=== PATIENT | female | born 1985 | race Caucasian/White ===

== ENCOUNTER 2021-03-13 23:16 | Inpatient (IN) | payer BC, MEDICAID ==
[~2021-03-13] VITALS: Ht 170.2 cm; Wt 77.2 kg
[2021-03-14] VITALS (18 sets, daily range): BP systolic 108–137; BP diastolic 64–99
[2021-03-14 00:27] LABS: BASOPHILS % (AUTO) 0.1 % (0-1); EOSINOPHILS % (AUTO) 0 % (0-6); HEMATOCRIT 42.6 % (35.0-45.0); HEMOGLOBIN 14.3 g/dl (12.0-16.0); LYMPHOCYTES # (AUTO) 1.5 X10'3 (1.1-4.8); LYMPHOCYTES % (AUTO) 8.6 % (21-51); MEAN CORPUSCULAR HEMOGLOBIN 30.3 PG (27.0-31.0); MEAN CORPUSCULAR HGB CONC 33.6 g/dL (33.0-36.5); MEAN CORPUSCULAR VOLUME 90.2 FL (78-98); MONOCYTES # (AUTO) 0.7 X10'3 (0-0.9); MONOCYTES % (AUTO) 3.8 % (2-12); NEUTROPHILS % (AUTO) 87.5 % (42-75); PLATELET COUNT 372 X10'3 (140-440); RED BLOOD COUNT 4.72 X10'6 (4.20-5.60); RED CELL DISTRIBUTION WIDTH 14.3 % (11.5-14.5); WHITE BLOOD COUNT 17.1 X10'3 (4.5-11.0)
[2021-03-14 00:38] LABS: ALKALINE PHOSPHATASE 110 IU/L (46-116); CHLORIDE 102 MMOL/L (99-107)
[2021-03-14 00:44] LABS: URINE HCG NEGATIVE (NEG)
[2021-03-14 00:49] LABS: CLARITY,URINE CLEAR (Clear); COLOR,URINE YELLOW (Yellow); GLUCOSE, URINE NEGATIVE (Neg); KETONES,URINE NEGATIVE (Neg); LEUKOCYTE ESTERASE ,URINE NEGATIVE (Neg); NITRITES, URINE NEGATIVE (Neg); OCCULT BLOOD,URINE TRACE-LYSED (Neg); PROTEIN,URINE NEGATIVE (Neg)
[2021-03-14 00:54] LABS: UA COLLECTION TYPE CLN CATCH MIDSTREAM
[2021-03-14 01:06] LABS: ALANINE AMINOTRANSFERASE 18 U/L (12-78); ALBUMIN 4.1 G/DL (3.4-5.0); ANION GAP 14 (8-16); ASPARTATE AMINO TRANSFERASE 22 U/L (10-37); BLOOD UREA NITROGEN 10 MG/DL (7-18); BUN/CREATININE RATIO 11.5 (6.6-38.0); CREATININE 0.87 MG/DL (0.40-0.90); GLUCOSE 132 MG/DL (70-104); LIPASE < 50 U/L (73-393); POTASSIUM 3.9 MMOL/L (3.5-5.1); SODIUM 138 MMOL/L (135-145); TOTAL CARBON DIOXIDE 21.8 MMOL/L (24-32); TOTAL PROTEIN 8.1 G/DL (6.4-8.2); eGFR 74 ML/MIN
[2021-03-14 01:12] LABS: BACTERIA,URINE FEW /HPF (Neg); RBC,URINE 0-2 /HPF (0-2); SQUAMOUS EPITHELIAL CELL,UR FEW /LPF (FEW); WBC,URINE 0-4 /HPF (0-4)
[2021-03-14] MEDS ORDERED: ondansetron/PF 4mg/2ml inj IV ONE (01:30)
[2021-03-14] MEDS: morphine 4 MG/ML inj SYRINge IV PRN ×2 (01:38→02:20)
[2021-03-14] MEDS ORDERED: normal saline 1000ml 1,000 ML IV ONE (01:45)
[2021-03-14] MEDS ORDERED: piperacillin/tazo 3.375gm/50ml 50 ML IV ONE (02:00)
[2021-03-14] MEDS ORDERED: fentaNYL/PF 50MCG/1 ML 2ML syringe IV ONE (02:30)
[2021-03-14] MEDS ORDERED: LORA-269 PO (02:48)
[2021-03-14] MEDS ORDERED: ZOLP10TA PO (02:48)
[2021-03-14] MEDS ORDERED: SYN0.088T PO (02:48)
[2021-03-14] MEDS ORDERED: haloperidol lactate 5mg/ml inj IM ONE (03:10)
[2021-03-14] MEDS ORDERED: HYDROmorphone inj. 0.5 MG/0.5 ML DISP.SYRIN IV ONE (03:40)
[2021-03-14] MEDS ORDERED: ondansetron/PF 4mg/2ml inj IV PRN ×2 (04:30→07:15)
[2021-03-14] MEDS ORDERED: morphine 2 MG/ML inj. syringe IV PRN ×3 (04:30→07:15)
[2021-03-14] MEDS ORDERED: zolpidem 5mg tablet PO PRN (04:40)
[2021-03-14] MEDS: normal saline 1000ml 1,000 ML IV SCH ×3 (04:45→23:48)
[2021-03-14] MEDS ORDERED: BUPIVAcaine/PF 2.5 mg/ml (0.25%) 30ml vial ONE (07:04)
[2021-03-14] MEDS ORDERED: LIDOcaine 1% 30ml preserv. free vial ONE (07:04)
[2021-03-14] MEDS ORDERED: scopolamine 1.5mg patch.TD72 TD ONE (07:13)
[2021-03-14] MEDS ORDERED: famotidine/PF 10 mg/ml inj IV ONE (07:13)
[2021-03-14] MEDS ORDERED: labetalol 20mg/4ml (5mg/ml) syringe IV PRN (07:15)
[2021-03-14] MEDS ORDERED: ketorolac trometh. 30mg/ml inj. IV ONE (07:15)
[2021-03-14] MEDS ORDERED: hydrALAZINE 20mg/ml inj. IV PRN (07:15)
[2021-03-14] MEDS ORDERED: meperidine/PF 25mg/ml syringe IV PRN ×3 (07:15)
[2021-03-14] MEDS ORDERED: acetaminophen 1,000mg/100ml IV 100 ML IV PRN (07:15)
[2021-03-14] MEDS ORDERED: ringers solution, lacted 1,000 ML IV SCH (07:15)
[2021-03-14] MEDS ORDERED: morphine 4 MG/ML inj SYRINge IV PRN (07:15)
[2021-03-14] MEDS ORDERED: proCHLORperazine 10 MG/2 ml inj IV PRN (07:15)
[2021-03-14] MEDS ORDERED: sevoflurane 250ml liquid IH ONE (07:18)
[2021-03-14] MEDS ORDERED: midazolam 1 mg/ML 2ml injection ONE (07:21)
[2021-03-14] MEDS ORDERED: fentaNYL /PF 50mcg/ml 5ml ampule ONE (07:22)
[2021-03-14] MEDS ORDERED: HYDROmorphone/PF 0.2 MG/ML SYRINGE IV PRN ×2 (07:25)
[2021-03-14] MEDS ORDERED: LIDOcaine 2% 5ml jelly ONE (07:26)
[2021-03-14] MEDS ORDERED: ceFOXitin 1000 MG inj ONE ×2 (07:41)
[2021-03-14] MEDS ORDERED: rocuronium 10mg/ml inj IV ONE (07:41)
[2021-03-14] MEDS ORDERED: propofol inj 20 ML IV ONE (07:41)
[2021-03-14] MEDS ORDERED: LIDOcaine 2% (20mg/ml) 5ml vial ONE (07:41)
[2021-03-14] MEDS ORDERED: dexamethasone sod phosphate 4mg/ml inj. ONE (07:42)
[2021-03-14] MEDS ORDERED: ondansetron/PF 4mg/2ml inj ONE (07:42)
[2021-03-14] MEDS ORDERED: 0.9 % SODIUM CHLORIDE 10 ML VIAL ONE (07:54)
[2021-03-14] MEDS ORDERED: ePHEDrine 50MG/ML INJ. ONE (07:54)
[2021-03-14] MEDS ORDERED: neostigmine methylsulfate 1 MG/ML 10ml vial ONE (08:05)
[2021-03-14] MEDS ORDERED: glycopyrrolate 0.2mg/ml inj ONE (08:05)
[2021-03-14] MEDS ORDERED: HYDROcodone/acetaminophen 5mg/325mg tablet PO PRN (08:15)
--- NOTE | 2021-03-14 08:26 | NUR ---
Received from OR via [facility], accompanied by Anesthesiologist Shakeel and report given by Anesthesiolgist. VS WNL, patient sleepy but somewhat responsive, denies pain. Lap sites with dermabond only, CDI otherwise. 20G right AC with IVF LR at 100cc/hr. Pt will need to be transferred to bed, will coordinate with frame sample and pattern supervisor prior to transer. SCDs will be placed when transferred to bed. No talamantes, patient voided prior to surgery.
[2021-03-14] MEDS ORDERED: magnesium 4gm in 100ml NS 100 ML IV PRN (09:30)
[2021-03-14] MEDS ORDERED: magnesium Cl slow-release 64mg tablet PO PRN (09:30)
[2021-03-14] MEDS ORDERED: potassium Cl 20 mEq SR tablet PO PRN ×2 (09:30)
[2021-03-14] MEDS ORDERED: potassium Cl 40MEQ/1/2NS 520ml 520 ML IV PRN (09:30)
--- NOTE | 2021-03-14 09:36 | NUR ---
Report called to receiving nurse. Transferred via gurney into room and onto surgical bed, 340B. Belongings sent with patient, glasses on face, one large white clear bag, one medium sized handbag, one hospital belongings bag. Special Issues communicated to receiving nurse Ava BLANTON who is at bedside to receive patient. BLL call light within reach, chart at bedside.
[2021-03-14] MEDS: piperacillin/tazo 3.375gm/50ml 50 ML IV SCH ×3 (11:08→23:47)
[2021-03-14] MEDS: levoTHYROXINE 88mcg tablet PO SCH (11:11)
--- NOTE | 2021-03-14 12:36 | NUR ---
Pt. has a small clear jeweled bracelet on her. Offered to have admitting come put bracelet in safe but pt. refused stating she would just put it back on. Pt. put bracelet on and is wearing it.
[2021-03-14 12:40] LABS: ALANINE AMINOTRANSFERASE 500 U/L (12-78); ALBUMIN 3.5 G/DL (3.4-5.0); ALBUMIN/GLOBULIN RATIO 1.2 (1.1-1.5); ALKALINE PHOSPHATASE 180 IU/L (46-116); ANION GAP 10 (8-16); ASPARTATE AMINO TRANSFERASE 678 U/L (10-37); BILIRUBIN,TOTAL 2.4 MG/DL (0.1-1.0); BLOOD UREA NITROGEN 9 MG/DL (7-18); BUN/CREATININE RATIO 11.7 (6.6-38.0); CALCIUM 7.9 MG/DL (8.5-10.1); CHLORIDE 105 MMOL/L (99-107); CREATININE 0.77 MG/DL (0.40-0.90); GLUCOSE 111 MG/DL (70-104); POTASSIUM 3.9 MMOL/L (3.5-5.1); SODIUM 141 MMOL/L (135-145); TOTAL CARBON DIOXIDE 25.9 MMOL/L (24-32); TOTAL PROTEIN 6.4 G/DL (6.4-8.2); eGFR 85 ML/MIN
[2021-03-14] MEDS: HYDROcodone/acetaminophen 10/325mg tab PO PRN ×2 (15:52→20:12)
[2021-03-14] MEDS: K and/or MAG REPLACEMENT MC SCH (20:00)
[2021-03-14] MEDS: lactobacillus rhamnosus 10,000 MMU CELLS/CAPSULE PO SCH (20:11)
[2021-03-14] MEDS ORDERED: LORazepam 1 MG tablet PO SCH (21:00)
--- NOTE | 2021-03-15 00:58 | NUR ---
Student documentation: I have reviewed all interventions, assessments performed and documented by Elina Ewing. Student Medication Administration: For this medication-pass time frame, all medication were reviewed, dispensed, administered and documented per hospital policy by Elina Heaton [place].
[2021-03-15 05:55] LABS: HEMOGLOBIN 10.9 g/dl (12.0-16.0)
[2021-03-15 05:58] LABS: BASOPHILS % (AUTO) 0.2 % (0-1); EOSINOPHILS % (AUTO) 0.2 % (0-6); HEMATOCRIT 32.3 % (35.0-45.0); LYMPHOCYTES # (AUTO) 2.2 X10'3 (1.1-4.8); LYMPHOCYTES % (AUTO) 25.7 % (21-51); MEAN CORPUSCULAR HEMOGLOBIN 31.1 PG (27.0-31.0); MEAN CORPUSCULAR HGB CONC 33.6 g/dL (33.0-36.5); MEAN CORPUSCULAR VOLUME 92.4 FL (78-98); MEAN PLATELET VOLUME 8.1 FL (7.4-10.4); MONOCYTES # (AUTO) 0.4 X10'3 (0-0.9); NEUTROPHILS # (AUTO) 5.9 X10'3 (1.8-7.7); NEUTROPHILS % (AUTO) 68.9 % (42-75); PLATELET COUNT 235 X10'3 (140-440); RED CELL DISTRIBUTION WIDTH 14.6 % (11.5-14.5); WHITE BLOOD COUNT 8.6 X10'3 (4.5-11.0)
[2021-03-15 06:20] LABS: ALANINE AMINOTRANSFERASE 294 U/L (12-78); ALBUMIN 2.7 G/DL (3.4-5.0); ALKALINE PHOSPHATASE 133 IU/L (46-116); ANION GAP 7 (8-16); ASPARTATE AMINO TRANSFERASE 167 U/L (10-37); BILIRUBIN,TOTAL 0.9 MG/DL (0.1-1.0); BLOOD UREA NITROGEN 8 MG/DL (7-18); BUN/CREATININE RATIO 11.6 (6.6-38.0); CALCIUM 7.9 MG/DL (8.5-10.1); CHLORIDE 108 MMOL/L (99-107); CREATININE 0.69 MG/DL (0.40-0.90); GLUCOSE 97 MG/DL (70-104); MAGNESIUM 2.1 MG/DL (1.5-2.4); POTASSIUM 3.8 MMOL/L (3.5-5.1); SODIUM 142 MMOL/L (135-145); TOTAL CARBON DIOXIDE 26.6 MMOL/L (24-32); TOTAL PROTEIN 5.3 G/DL (6.4-8.2); eGFR > 90 ML/MIN
--- NOTE | 2021-03-15 06:37 | NUR ---
Patient in room [facility]. I have received report from Rich BLANTON and had the opportunity to ask questions and assume patient care.
[2021-03-15] MEDS: HYDROcodone/acetaminophen 10/325mg tab PO PRN ×2 (06:44→12:45)
--- NOTE | 2021-03-15 06:58 | NUR ---
Problems reprioritized. Patient report given, questions answered & plan of care reviewed with SHRUTHI. Addendum: 03/15/21 at 0658 by Milo Ford RN Amended: Links added.
[2021-03-15 07:00] VITALS: BP_SYST 123; BP_SYST 91; BP_DIAS 48; BP_DIAS 61
[2021-03-15] MEDS: K and/or MAG REPLACEMENT MC SCH (08:00)
--- NOTE | 2021-03-15 08:28 | NUR ---
Paged Dr. To PAGER ID: [phone] MESSAGE: Surgical Sarika BLANTON ext [phone]. RE: Estrella Medellin. Just FYI. Dr. Paulino said that patient can go home today from his standpoint.
[2021-03-15] MEDS: levoTHYROXINE 88mcg tablet PO SCH (08:46)
[2021-03-15] MEDS: lactobacillus rhamnosus 10,000 MMU CELLS/CAPSULE PO SCH (08:46)
[2021-03-15] MEDS ORDERED: HYDR-3972 PO (09:51)
[2021-03-15 11:00] VITALS: BP 104/63
--- NOTE | 2021-03-15 14:14 | NUR ---
Discharge instructions given to patient, patient verbalized understanding of all instructions made. Patient stated that her ride will be here between 5-6pm as her boyfriend is at work. Original written prescription for Chugwater given to patient, placed it inside her discharge folder. Signs and symptoms of infection to watch for was discussed with patient. Instructed patient to ensure she has all her belongings with her before leaving the hospital. Provided education to patient about Chugwater including possible drug-drug interaction between Chugwater, ativan, and restoril that is on her list of home medication.
--- NOTE | 2021-03-16 12:58 | NUR ---
CASE MANAGEMENT DISCHARGE FOLLOW UP: T/c to pt, no answer, left message requesting callback.
== END 2021-03-15 18:10 | disposition home or self-care (01) | DRG 343 ==
LOC: ER 23:17 → ED HOLD 03-14 04:26 → SUR 3N 03-14 10:16
PROVIDERS: ADMIT Internal Medicine; ATTEND Internal Medicine
PROC: 0DTJ4ZZ Resection of Appendix, Percutaneous Endoscopic Approach (ICD-10-PCS; principal; 2021-03-14 07:18)
DX: K35.80 Unspecified acute appendicitis (principal); E03.9 Hypothyroidism, unspecified; F12.90 Cannabis use, unspecified, uncomplicated; Z20.822 Contact with and (suspected) exposure to COVID-19; F41.9 Anxiety disorder, unspecified; R74.01 Elevation of levels of liver transaminase levels; Z79.899 Other long term (current) drug therapy; Z79.890 Hormone replacement therapy; Z88.2 Allergy status to sulfonamides; Z88.8 Allergy status to other drugs, medicaments and biological substances
CPT/HCPCS: 96365; 96375; 99285; Z7506; Z7508; 36415; 74176; 80053; 81001; 81025; 83690; 83735; 85025; 87081; 87635; A4215; A4618; A7000; G0378; J0694; J1100; J1170; J1630; J1885; J2001; J2250; J2270; J2405; J2543; J2704; J2710; J3010; J3490; J7030; J7120